=== PATIENT | female | born 1990 | race Hispanic/Latino ===

== ENCOUNTER 2024-09-04 17:58 | Emergency (ER) | payer BC, OTHER ==
[~2024-09-04] VITALS: Ht 157.5 cm; Wt 50.3 kg
--- NOTE | 2024-09-04 18:22 | ERN ---
ED Note History of Present Illness Stated Complaint: CHEST PAINS,HEADACHES Chief Complaint: Cough Time Seen by MD: 18:11 Dictation: PATIENT IS A 34-YEAR-OLD FEMALE HERE WITH FLU-LIKE SYMPTOMS TO INCLUDE FEVER, FRONTAL HEADACHE, SORE THROAT COUGH AND RHINITIS. NO NAUSEA VOMITING NO DIARRHEA NO LOSS OF TASTE OR SMELL. ONSET OF SYMPTOMS WERE YESTERDAY, SHE HAS TAKEN TYLENOL [id number] FOR PAIN. Allergies: Coded Allergies: No Known Drug Allergies (Verified Allergy, Unknown, 09/09/16) Home Meds Active Scripts Amoxicillin/Potassium Clav (Amox Tr-K Clv 875-125 mg Tab) 875 Mg-125 Mg Tablet, 1 EACH PO BID for 7 Days, #14 TAB 0 Refills Prov:RAMON YADAV ENVIRONMENTAL LABORATORY TECHNICIAN 09/04/24 Oseltamivir Phosphate (Tamiflu) 75 Mg Cap, 1 CAP PO BID for 5 Days, #10 CAP 0 Refills Prov:RAMON YADAV ENVIRONMENTAL LABORATORY TECHNICIAN 09/04/24 Past Medical History Past Medical History: Anemia Surgical History: Appendectomy History: Not Applicable RN Note Reviewed/Agreed w/PFSH: Yes Review of System Dictation CONSTITUTIONAL: NEGATIVE EXCEPT FOR HPI FEVER HEAD/FACE: NEGATIVE EXCEPT FOR HPI EENT: NEGATIVE EXCEPT FOR HPI CLEAR RHINITIS WITH SORE THROAT RESPIRATORY: NEGATIVE EXCEPT FOR HPI DRY COUGH GASTROINTESTINAL/ABDOMINAL: NEGATIVE EXCEPT FOR HPI GENITOURINARY: NEGATIVE EXCEPT FOR HPI MUSCULOSKELETAL: NEGATIVE EXCEPT FOR HPI INTEGUMENTARY: NEGATIVE EXCEPT FOR HPI NEUROLOGICAL/PSYCH: NEGATIVE EXCEPT FOR HPI HEMATOLOGIC/LYMPHATIC: NEGATIVE EXCEPT FOR HPI ALL SYSTEMS NEGATIVE, EXCEPT NOTED ABOVE. 13 POINT REVIEW OF SYSTEMS ASSESSED AND ALL NEGATIVE EXCEPT FOR ABOVE. Initial Vital Sign VS Vital Signs Date Time Temp Pulse Resp B/P (MAP) Pulse Ox O2 Delivery O2 Flow Rate FiO2 09/04/24 18:10 98.8 78 16 101/58 100 Room Air 09/04/24 21:51 0 21 Physical Exam Dictation VITAL SIGNS REVIEWED GENERAL APPEARANCE: ALERT, ORIENTED X 3, MILD ACUTE DISTRESS, WELL DEVELOPED, NOURISHED. HEAD AND FACE: NON-TRAUMATIC. EYES: PERRL, PINK CONJUNCTIVAS, EYELID NO TRAUMA, ANTERIOR CHAMBER WITH ARCUS SENILIS. EARS: PINNAS INTACT AND NO SIGNS OF TRAUMA OR ERYTHEMA EAR CANALS CLEAR AND NO DISCHARGE TM NO ERYTHEMA NOSE: CLEAR DISCHARGE, NO BLEEDING. OROPHARYNX: MOUTH NORMAL, TONGUE PINK, PHARYNX CLEAR,NO ERYTHEMA, TONSILS 2/4 BILATERALLY CRYPTIC, NO ABSCESSES NOTED, MUCOUS MEMBRANE MOIST UVULA MIDLINE, VOICE IS CLEAR NECK: SUPPLE, NON-TENDER, NO THYROMEGALY, NO MASSES, NO JVD, NO BRUITS BREAST:DEFERRED CHEST:NO TENDERNESS, NO CREPITUS, NO PARADOXICAL MOVEMENT, NO RETRACTIONS LUNGS:CLEAR, WELL-VENTILATED, SYMMETRIC, NO RALES, NO WHEEZING, NO RHONCHI, NO STRIDOR, GOOD BREATH SOUNDS BILATERALLY HEART: REGULAR RATE, REGULAR RHYTHM, NO MURMUR, NO GALLOPS VASCULAR: NO PERIPHERAL EDEMA, ABDOMEN: SOFT, POSITIVE BOWEL SOUNDS, NONDISTENDED, NO GUARDING, NONTENDER, NO REBOUND, NO MASSES NO HEPATOMEGALY, NO SPLENOMEGALY, NO HATFIELD'S SIGN, NO HERNIAS. RECTAL: DEFERRED GENITAL: DEFERRED NEUROLOGICAL: NORMAL SPEECH, MOTOR FUNCTION INTACT, SENSORY FUNCTION INTACT MUSCULOSKELETAL: NECK NONTENDER, FULL RANGE OF MOTION, BACK NONTENDER, FULL RANGE OF MOTION, EXTREMITIES: NONTENDER, FULL RANGE OF MOTION SKIN: COLOR PINK, DRY, NO TURGOR, NO RASH, NO LACERATIONS, NO ABRASIONS, NO CONTUSIONS. LYMPHATIC: DEFERRED Results (Laboratory/Radiology) Laboratory/Radiology Laboratory Tests Test 09/04/24 18:13 Influenza Type A Antigen Negative For Type A Influenza Type B Antigen Positive For Type B SARS-CoV-2 Antigen (Rapid) PRESUMPTIVE NEGATIVE Group A Streptococcus Rapid negative (NEGATIVE) Labs Reviewed?: Yes ED Course ED Course Orders Procedure Category Date Status Time Acetaminophen 500mg PHA 09/04/24 Complete Tab (Tylenol 500mg T 18:30 Rapid (Group A Strep) LAB 09/04/24 Complete 18:12 Influenza Type A & B, LAB 09/04/24 Complete Rapid 18:12 Covid19 (Sars Antigen LAB 09/04/24 Complete Rapid) 18:12 Current Medications Medications (Trade) Dose Ordered Sig/Diya Route PRN Reason Start Time Stop Time Status Last Admin Dose Admin Acetaminophen (TYLenol 500MG TAB) 1,000 mg ONCE ONCE PO 09/04/24 18:30 09/04/24 18:31 DC 09/04/24 21:57 Vital Signs Date Time Temp Pulse Resp B/P (MAP) Pulse Ox O2 Delivery O2 Flow Rate FiO2 09/04/24 21:51 98.8 78 16 100/56 98 Room Air* 0 21 09/04/24 18:10 98.8 78 16 101/58 100 Room Air Medical Decision Making MDM Medical discharge making based on swabs for flu COVID and strep. Patient influenza B positive Discharged home with Tamiflu and Tessalon Given hydration instructions and told see her primary care doctor for returned back to work MDM: Differential diagnosis: Viral syndrome, influenza, fever Risk of complication and/or morbidity or mortality of patient management: None Medications-Per medication reconciliation Need for hospitalization: Patient does not meet criteria for hospitalization. Need for emergency major/minor surgery: No There are no social concerns with this patient. Prescription drug management Prescriptions will include symptomatic care I independently interpreted the test that were performed, results were reviewed by me and considered findings on radiology if ordered. DX & DISP Disposition: Discharge Departure Impression: Primary Impression: Influenza B Additional Impressions: Acute pharyngitis, unspecified, Fever Condition: Stable Scripts Amoxicillin/Potassium Clav (Amox Tr-K Clv 875-125 mg Tab) 875 Mg-125 Mg Tablet 1 EACH PO BID for 7 Days, #14 TAB 0 Refills Prov: RAMON YADAV ENVIRONMENTAL LABORATORY TECHNICIAN 09/04/24 Oseltamivir Phosphate (Tamiflu) 75 Mg Cap 1 CAP PO BID for 5 Days, #10 CAP 0 Refills Prov: RAMON YADAV ENVIRONMENTAL LABORATORY TECHNICIAN 09/04/24 Additional Instructions: Follow-up with primary care provider in 1 to 2 days. Take medications as directed here in the emergency room. Okay to continue home medications unless otherwise discussed during your visit in the emergency room today. Return to your nearest emergency room if symptoms worsen or if there is no improvement. Call 911 if you need immediate assistance. Take Tylenol or Motrin [id number] as needed and if no contraindications are present. Increase oral hydration. A wound culture or urine culture was ordered here in the emergency room department please follow-up with primary care provider and advise them to get repeat ports from our facility. If you had any Yassine wrap/splints that were applied here, please do not remove them until you see your primary care or specialty. Take Tamiflu and Augmentin as directed until gone. Increase your water intake. See your primary care doctor for follow up in the next 2-3 days and return back to work excuse Referrals: HARSHIL FORD (PCP) Time of Disposition: 19:41 I have reviewed the case, and I agree with, Diagnosis and Plan I performed the substantive portion of the visit. I have reviewed and personally made and approve the management plan that is documented in the notes by myself or the [facility]. I acknowledge full responsibility for the patient's management plan. RAMON YADAV NP Sep 04, 2024 18:22 NENA TEE MD Sep 05, 2024 16:35
[2024-09-04 18:38] LABS: RAPID GROUP A STREP negative (NEGATIVE)
[2024-09-04 18:48] LABS: COVID19 (SARS ANTIGEN RAPID) PRESUMPTIVE NEGATIVE (NEGATIVE); INFLUENZA TYPE A Negative For Type A (NEGATIVE)
[2024-09-04 19:15] LABS: INFLUENZA TYPE B Positive For Type B (NEGATIVE)
[2024-09-04] MEDS ORDERED: OSEL75 PO (19:42)
[2024-09-04] MEDS ORDERED: AMOX1TAB16 PO (19:42)
--- NOTE | 2024-09-04 20:27 | NUR ---
PT TO FT AT THIS TIME
[2024-09-04 21:51] VITALS: BP 100/56; PULSE 78; RESP 16; TEMP 98.7; O2SAT 98
[2024-09-04] MEDS: acetaMINOPHEN 500 MG TABLET PO ONE (21:57)
== END 2024-09-04 22:07 | disposition home or self-care (01) ==
LOC: EDH 17:58
DX: J10.1 Influenza due to other identified influenza virus with other respiratory manifestations (principal); Z79.899 Other long term (current) drug therapy; Z20.822 Contact with and (suspected) exposure to COVID-19; Z90.49 Acquired absence of other specified parts of digestive tract
CPT/HCPCS: 87426; 87804; 87880; 99283

== ENCOUNTER → 2024-10-28 | Outpatient (CLI) | payer OTHER ==
[~2024-10-28] MED LIST: AMOX1TAB16 PO; OSEL75 PO
[2024-10-28 09:06] LABS: BASOPHILS # (AUTO) 0.04 K/uL (0.00-0.20); BASOPHILS % (AUTO) 0.6 % (0.0-5.0); EOSINOPHILS # (AUTO) 0.07 K/uL (0.00-0.70); HEMATOCRIT 30.1 % (36-48); IMMATURE GRANULOCYTE ABSOLUTE 0.03 K/uL (0-1); LYMPHOCYTES # (AUTO) 1.9 K/uL (1.0-4.8); LYMPHOCYTES % (AUTO) 26.1 % (21.0-51.0); MEAN CORPUSCULAR HEMOGLOBIN 19.8 pg (27.0-33.0); MEAN CORPUSCULAR HGB CONC 27.6 g/dL (32.0-36.0); MEAN CORPUSCULAR VOLUME 71.7 fL (79-99); MONOCYTES # (AUTO) 0.4 K/uL (0.1-1.0); MONOCYTES % (AUTO) 5.9 % (3.0-13.0); NEUTROPHILS # (AUTO) 4.8 K/uL (1.8-7.7); PLATELET COUNT (AUTO) 384 K/uL (130-400); RED CELL DISTRIBUTION WIDTH 17.2 % (11.0-15.5); WHITE BLOOD COUNT (AUTO) 7.3 K/uL (4.8-10.8)
[2024-10-28 09:19] LABS: APPEARANCE,URINE CLEAR (CLEAR); BILIRUBIN,URINE NEGATIVE (NEGATIVE); COLOR,URINE YELLOW (YELLOW); GLUCOSE, URINE (UA) NEGATIVE (NEGATIVE); KETONES,URINE 5 mg/dL (NEGATIVE); LEUKOCYTE ESTERASE ,URINE NEGATIVE Leu/uL (NEGATIVE); NITRATE,URINE NEGATIVE (NEGATIVE); OCCULT BLOOD,URINE SMALL (NEGATIVE); PROTEIN,URINE 10 mg/dL (NEGATIVE); UROBILINOGEN,URINE 0.2 mg/dL (0.2-1.0)
[2024-10-28 09:24] LABS: ADD UA MICROSCOPIC YES
[2024-10-28 09:30] LABS: % IRON SATURATION 3.7 % (22-44)
[2024-10-28 09:35] LABS: ALBUMIN 4.1 g/dL (3.5-5.0); BILIRUBIN,TOTAL 0.6 mg/dL (0.2-1.0); CREATININE 0.6 mg/dL (0.5-1.0); POTASSIUM 3.4 mmol/L (3.5-5.1); THYROID STIMULATING HORMONE 2.58 uIU/mL (0.36-3.74); TOTAL PROTEIN, SERUM 8.3 g/dL (6.0-8.3)
[2024-10-28 10:09] LABS: MUCUS,URINE FEW LPF (None Seen); RBC,URINE 0-1 /HPF (0-1); SQUAMOUS EPITHELIAL CELL,UR RARE /HPF (0-2)
[2024-10-28 10:13] LABS: ERYTHROCYTE SEDIMENTATION RATE 13 MM/HR (0-20)
== END | disposition home or self-care (01) ==
LOC: LAB 08:21
PROVIDERS: ATTEND Nurse Practitioner Family
DX: Z13.220 Encounter for screening for lipoid disorders (principal); Z13.1 Encounter for screening for diabetes mellitus; Z13.29 Encounter for screening for other suspected endocrine disorder; Z13.21 Encounter for screening for nutritional disorder; D64.9 Anemia, unspecified; R53.82 Chronic fatigue, unspecified; N89.8 Other specified noninflammatory disorders of vagina; D44.9 Neoplasm of uncertain behavior of unspecified endocrine gland
CPT/HCPCS: 36415; 80053; 80061; 81001; 82306; 82728; 82746; 83540; 83550; 84439; 84443; 84481; 85025; 85045; 85651; 86695; 86696

== ENCOUNTER 2025-04-02 15:20 | Emergency (ER) | payer OTHER ==
[~2025-04-02] VITALS: Ht 157.5 cm; Wt 50.3 kg
[2025-04-02] MEDS ORDERED: CEPH500B PO (16:38)
--- NOTE | 2025-04-02 16:39 | ERN ---
ED Note History of Present Illness Stated Complaint: LEFT TOE INJURY Chief Complaint: Toe Pain/Injury Time Seen by MD: 15:24 Dictation: 35-YEAR-OLD FEMALE PRESENTS TO ER COMPLAINTS OF LEFT TOE INJURY. PATIENT STATES SHE HIT HER TOENAIL AND NOW IT IS LOOSE. INJURIES TO 1ST TOE ON LEFT FOOT Allergies: Coded Allergies: No Known Drug Allergies (Verified Allergy, Unknown, 09/09/16) Home Meds Active Scripts Cephalexin Monohydrate (Keflex) 500 Mg Cap, 500 MG PO TID for 7 Days, #28 CAP Prov:HUMZA SMITH RECOVERER 04/02/25 Amoxicillin/Potassium Clav (Amox Tr-K Clv 875-125 mg Tab) 875 Mg-125 Mg Tablet, 1 EACH PO BID for 7 Days, #14 TAB 0 Refills Prov:RAMON YADAV RECOVERER 09/04/24 Oseltamivir Phosphate (Tamiflu) 75 Mg Cap, 1 CAP PO BID for 5 Days, #10 CAP 0 Refills Prov:RAMON YADAV RECOVERER 09/04/24 Past Medical History Past Medical History: Anemia, Anxiety, Depression Surgical History: Appendectomy History: Not Applicable Review of System Dictation CONSTITUTIONAL: NEGATIVE FOR FEVER,CHILLS, AND WEIGHT LOSS EYES: NEGATIVE FOR INJURY, PAIN,REDNESS, AND DISCHARGE ENT: NEGATIVE FOR INJURY,PAIN OR SWELLING CARDIOVASCULAR: NEGATIVE FOR CHEST PAIN, PALPITATIONS, AND EDEMA RESPIRATORY: NEGATIVE FOR SHORTNESS OF BREATH, COUGH, WHEEZING, AND PLEURITIC CHEST PAIN ABDOMEN/GI: NEGATIVE FOR ABDOMINAL PAIN, NAUSEA, VOMITING, DIARRHEA, AND CONSTI PATION BACK: NEGATIVE FOR INJURY AND PAIN : NEGATIVE FOR INJURY, BLEEDING AND DISCHARGE MS/EXTREMITY: NEGATIVE FOR INJURY AND DEFORMITY SKIN: NEGATIVE FOR RASH, AND DISCOLORATION NEURO: NEGATIVE FOR HEADACHE, WEAKNESS, NUMBNESS, TINGLING, AND SEIZURE PSYCH: NEGATIVE FOR SUICIDE IDEATION, HOMICIDAL IDEATION, AND HALLUCINATIONS ALLERGY/IMMUNOLOGY: NEGATIVE FOR HIVES, RASH, AND ALLERGIES ALL SYSTEMS NEGATIVE, EXCEPT NOTED ABOVE. Initial Vital Sign VS Vital Signs Date Time Temp Pulse Resp B/P (MAP) Pulse Ox O2 Delivery O2 Flow Rate FiO2 04/02/25 15:21 98.1 88 16 104/54 99 Room Air Physical Exam Dictation GENERAL: AWAKE, ALERT, NAD HEAD/FACE: NORMOCEPHALIC, ATRAUMATIC EYES: PERRL, EOMI, VISION AT BASELINE ENT: ORAL CAVITY CLEAR, TMS CLEAR, NO SIGNS OF INFECTION NECK: TRACHEA MIDLINE, SUPPLE, NO NUCHAL RIGIDITY CARDIOVASCULAR: RRR, NORMAL S1/S2, NO MRGS, NO JVD RESPIRATORY: CTAB, NO RESPIRATORY DISTRESS, NO RALES OR WHEEZES ABDOMEN: SOFT, NON-TENDER, NON-DISTENDED, NORMAL BOWEL SOUNDS, NO GUARDING OR REBOUND. SKIN: WARM, DRY, NORMAL TURGOR, NO RASH. PARTIAL AVULSION OF LEFT 1ST TOENAIL MS/EXTREMITY: PULSES EQUAL, NO CYANOSIS, NEUROVASCULAR INTACT, FROM NEURO: COAX4, GCS 15, STRENGTH 5/5, CN 2-12 INTACT, NORMAL CEREBELLAR EXAM, NORMAL GAIT, PSYCH: NORMAL BEHAVIOR, MOOD, AND AFFECT NORMAL ED Course ED Course Orders Procedure Category Date Status Time Wound Care (Er) CPOE 04/02/25 Verified 16:39 Vital Signs Date Time Temp Pulse Resp B/P (MAP) Pulse Ox O2 Delivery O2 Flow Rate FiO2 04/02/25 15:21 98.1 88 16 104/54 99 Room Air Medical Decision Making MDM MDM: DIFFERENTIAL DIAGNOSIS: DISLOCATION, AVULSION, LACERATION, RATIONALE: TESTS CONSIDERED AND ORDERED SECONDARY TO SHARED DECISION MAKING INCLUDE: LABS, ECG AND RADIOLOGY PREVIOUS OUTSIDE RECORDS REVIEWED: OLD ER VISITS. RISK OF COMPLICATION AND/OR MORBIDITY OR MORTALITY OF PATIENT MANAGEMENT: NONE MEDICATIONS-PER MEDICATION RECONCILIATION NEED FOR HOSPITALIZATION: PATIENT DOES NOT MEET CRITERIA FOR HOSPITALIZATION. NEED FOR EMERGENCY MAJOR/MINOR SURGERY: NO THERE ARE NO SOCIAL CONCERNS WITH THIS PATIENT. PRESCRIPTION DRUG MANAGEMENT PRESCRIPTIONS WILL INCLUDE SYMPTOMATIC CARE PATIENT'S PRIOR EXTERNAL MEDICAL RECORDS FROM OTHER ER VISITS WERE REVIEWED BY ME INDICATED. PRIOR TESTING AND RESULTS FROM PREVIOUS VISITS WERE REVIEWED. PRIOR TESTS WERE TAKEN INTO ACCOUNT WITH MEDICAL DECISION MAKING AND RESOURCE UTILIZATION, INDEPENDENT HISTORIAN/HISTORIANS WERE USED TO OBTAIN COMPLETE MEDICAL HISTORY. I INDEPENDENTLY INTERPRETED THE TEST THAT WERE PERFORMED, RESULTS WERE REVIEWED BY ME AND CONSIDERED FINDINGS ON RADIOLOGY IF ORDERED. PATIENT DECLINES DIGITAL BLOCK TO REMOVE PARTIALLY AVULSED TOENAIL. PATIENT ADVISED WE WILL SEND ANTIBIOTICS TO PREVENT INFECTION. PATIENT AGREES WITH PLAN. ADVISED PATIENT TO KEEP AREA DRESSED AND BANDAGED. ALLOW TOENAIL TO COME OFF ON ITS OWN DX & DISP Disposition: Discharge Departure Impression: Primary Impression: Avulsed toenail Additional Impression: Avulsion of toenail of left foot Condition: Stable Scripts Cephalexin Monohydrate (Keflex) 500 Mg Cap 500 MG PO TID for 7 Days, #28 CAP Prov: HUMZA SMITH NP 04/02/25 Referrals: HARSHIL FORD (PCP) HUMZA SMITH NP Apr 02, 2025 16:39
[2025-04-02 17:02] VITALS: BP 124/62; PULSE 75; RESP 18; TEMP 97.5; O2SAT 97
== END 2025-04-02 17:04 | disposition home or self-care (01) ==
LOC: EDH 15:20
DX: S91.202A Unspecified open wound of left great toe with damage to nail, initial encounter (principal); F41.9 Anxiety disorder, unspecified; F32.A Depression, unspecified; Z90.49 Acquired absence of other specified parts of digestive tract; W22.09XA Striking against other stationary object, initial encounter; Y93.89 Activity, other specified; Y92.89 Other specified places as the place of occurrence of the external cause; Y99.8 Other external cause status
CPT/HCPCS: 99283